=== PATIENT | male | born 1980 | race Caucasian/White ===

== ENCOUNTER 2023-09-14 07:19 | Emergency (ER) | payer BC, OTHER ==
[2023-09-14 07:38] LABS: BASE EXCESS VENOUS 5.1 (-2.0-3.0); PH,VENOUS 7.42 (7.31-7.41)
[2023-09-14] MEDS: Albuterol/Ipratropium 3.0-0.5 MG/3 ML Neb Soln NEB ONE (07:40)
[2023-09-14] MEDS: Sodium Chloride 0.9% 2.5 ML Syringe FLUSH PRN (07:40)
[2023-09-14] MEDS: Albuterol 0.083% 2.5 MG/3 ML Neb Soln NEB ONE ×2 (07:40→08:14)
[2023-09-14] MEDS: Sodium Chloride 0.9% 10 ML Syringe FLUSH PRN (07:40)
[2023-09-14 07:58] LABS: BASOPHILS ABSOLUTE AUTO 0.02 K/uL (0.00-0.20); BASOPHILS PERCENT AUTO 0.2 % (0.0-1.0); EOSINOPHILS ABSOLUTE AUTO 0.15 K/uL (0.00-0.45); EOSINOPHILS PERCENT AUTO 1.6 % (0.0-6.0); HEMATOCRIT 44.1 % (42.0-52.0); HEMOGLOBIN 15.1 g/dL (14.0-18.0); IMMATURE GRAN ABSOLUTE AUTO 0.03 K/uL (0.00-0.05); IMMATURE GRAN PERCENT AUTO 0.3 % (0.0-0.4); LYMPHOCYTES ABSOLUTE AUTO 1.42 K/uL (1.00-4.80); LYMPHOCYTES PERCENT AUTO 15.5 % (24.0-44.0); MEAN CORPUSCULAR HEMOGLOBIN 28.7 pg (28.0-32.0); MEAN CORPUSCULAR HGB CONC 34.2 g/dL (32.0-36.0); MEAN CORPUSCULAR VOLUME 83.8 fL (83.0-99.0); MEAN PLATELET VOLUME 10.2 fL (9.4-12.4); MONOCYTES ABSOLUTE AUTO 0.55 K/uL (0.00-0.80); NEUTROPHILS PERCENT AUTO 76.4 % (41.0-71.0); PLATELET COUNT,PLT 394 K/uL (150-400); RED BLOOD CELL COUNT 5.26 M/uL (4.52-5.90); WHITE BLOOD CELL COUNT,WBC 9.17 K/uL (3.9-11.3)
[2023-09-14 08:05] LABS: ALBUMIN 3.9 g/dL (3.4-5.0); BILIRUBIN TOTAL 0.4 mg/dL (0.2-1.0); CARBON DIOXIDE,CO2 28.2 mmol/L (21.0-32.0); CREATININE 1.2 mg/dL (0.8-1.3); EST CRCL DRUG DOSING (CG) 75.74 mL/min; POTASSIUM,K 3.4 mmol/L (3.5-5.1)
[2023-09-14] MEDS: Dexamethasone 10 MG/ML SDV IVPUSH ONE (08:14)
[2023-09-14 08:22] LABS: CORONAVIRUS COVID-19 NAA NEGATIVE (NEGATIVE); INFLUENZA A NAA NEGATIVE (NEGATIVE); INFLUENZA B NAA NEGATIVE (NEGATIVE)
[2023-09-14] MEDS: amLODIPine 5 MG Tab PO ONE (08:39)
[2023-09-14] MEDS: Hydrochlorothiazide 25 MG Tab PO ONE (08:40)
[2023-09-14] MEDS: Potassium Chloride 10% 20 MEQ/15 ML Soln 15 ML UD Cup PO ONE (08:42)
== END 2023-09-14 09:41 | disposition home or self-care (01) ==
LOC: MW.ED 07:19
DX: J45.21 Mild intermittent asthma with (acute) exacerbation (principal); I10 Essential (primary) hypertension; F17.200 Nicotine dependence, unspecified, uncomplicated; Z79.899 Other long term (current) drug therapy
CPT/HCPCS: 0240U; 36415; 71045; 80053; 82803; 83735; 83880; 84484; 85025; 85379; 93005; 96374; 99285; A9270; J1100; J3490; 93010; 99284; J7620-GY

== ENCOUNTER 2023-09-20 07:38 | Emergency (ER) | payer BC ==
[2023-09-20] MEDS: Albuterol/Ipratropium 3.0-0.5 MG/3 ML Neb Soln NEB ONE (08:15)
== END 2023-09-20 08:26 | disposition home or self-care (01) ==
LOC: MW.ED 07:38
DX: J45.909 Unspecified asthma, uncomplicated (principal); I10 Essential (primary) hypertension; Z79.899 Other long term (current) drug therapy
CPT/HCPCS: 94640; 99283; 99284; J7620-GY

== ENCOUNTER 2024-03-11 06:33 | Emergency (ER) | payer BC ==
[2024-03-11] MEDS: Dexamethasone 4 MG Tab PO ONE (06:59)
[2024-03-11] MEDS: Lidocaine 4% 1 each Patch TOP ONE (06:59)
[2024-03-11] MEDS: Acetaminophen 500 MG Tab PO ONE (06:59)
[2024-03-11] MEDS: Ketorolac 30 MG/ML SDV IM ONE (07:00)
[2024-03-11] MEDS: tiZANidine 4 MG Tab PO ONE (07:03)
[2024-03-11] MEDS: oxyCODONE 5 MG Tab PO ONE (07:40)
== END 2024-03-11 07:42 | disposition home or self-care (01) ==
LOC: MW.ED 06:33
DX: S39.012A Strain of muscle, fascia and tendon of lower back, initial encounter (principal); M54.42 Lumbago with sciatica, left side; I10 Essential (primary) hypertension; Z87.39 Personal history of other diseases of the musculoskeletal system and connective tissue; Z91.148 Patient's other noncompliance with medication regimen for other reason; X50.0XXA Overexertion from strenuous movement or load, initial encounter
CPT/HCPCS: 96372; 99283; A9270; J1885; J8540

== ENCOUNTER 2025-06-11 01:27 | Emergency (ER) | payer BC ==
[2025-06-11] MEDS: Acetaminophen/HYDROcodone 325-5 MG Tab PO ONE (02:47)
== END 2025-06-11 03:15 | disposition home or self-care (01) ==
LOC: MW.ED 01:27
DX: S02.5XXA Fracture of tooth (traumatic), initial encounter for closed fracture (principal); I10 Essential (primary) hypertension; J45.909 Unspecified asthma, uncomplicated; Z79.899 Other long term (current) drug therapy; X58.XXXA Exposure to other specified factors, initial encounter
CPT/HCPCS: 99282; A9270